=== PATIENT | male | born 1955 | race Caucasian/White ===

== ENCOUNTER → 2019-06-14 | Outpatient (CLI) | payer BC ==
[~2019-06-14] MED LIST: ASPIRIN81 M1; ATIVAN1 MG PO; AUGMENTIN 875-875 MG PO; METFORMIN500 MG PO; PREDNISONE10 MG PO; SIMVASTATIN10 MG; VICODIN ES 7501 TAB PO
[2019-06-14 09:08] LABS: BUN 19 mg/dl (7-24); CHLORIDE 107 mmol/L (98-107); CHOLESTEROL 123 mg/dL (<200); CREATININE 1.21 mg/dL (0.70-1.30); POTASSIUM 4.3 mmol/L (3.5-5.1); SODIUM 140 mmol/L (136-145); TRIGLYCERIDES 124 mg/dl (<150); VLDL CHOLESTEROL 25 mg/dL (6-40)
[2019-06-14 09:17] LABS: HDL CHOLESTEROL 35 mg/dl (40-60); LDL CHOLESTEROL 63 mg/dL (9-159)
== END | disposition home or self-care (01) ==
LOC: LAB 07:55
PROVIDERS: Family Medicine
DX: E78.2 Mixed hyperlipidemia (principal); E11.9 Type 2 diabetes mellitus without complications; I10 Essential (primary) hypertension